=== PATIENT | male | born 1965 | race Hispanic/Latino ===

== ENCOUNTER 2018-07-11 19:33 | Emergency (ER) | payer OTHER ==
[2018-07-11] MEDS ORDERED: KETOROLAC 30 MG/ML INJ ONE (20:15)
[2018-07-11 20:34] LABS: Absolute Lymphocytes (CBC) 2.2 K/uL (0.7-4.9); Absolute Monocytes 1.1 K/uL (0.1-1.3); Absolute Neutrophil 7.2 K/uL (1.8-8.0); Basophils % 0.5 % (0-1.3); Eosinophils % 1.3 % (0-4.4); Hematocrit 39.4 % (39.6-49.0); Lymphocytes % 20.1 % (15.3-44.8); MCH 29.5 pg (27.0-35.0); MCV 85.2 fL (80-100); Monocytes % 10.5 % (3.3-12.3); RBC Red Blood Cell Count 4.63 M/uL (4.33-5.43)
--- NOTE | 2018-07-11 20:34 | RAD REPORT ---
EXAM DESCRIPTION: CT - Stone Protocol - 07/11/2018 8:23 pm CLINICAL HISTORY: Abdominal pain, flank pain, history kidney stones COMPARISON: July 2016 TECHNIQUE: Axial 5 mm thick images were obtained without oral or IV contrast. The [id number] span s the entirety of the system including uppermost abdomen and lung bases. All CT scans are performed using dose optimization technique as appropriate and may include automated exposure control or mA/KV adjustment according to patient size. FINDINGS: Mild left-sided hydronephrosis is present secondary to a 5-6 mm mid left ureter calculus. Patient has bilateral nonobstructing 2 millimeter calculi. Left renal parenchymal edema and perinephr ic stranding are present. Distal to the stone the ureter is decompressed. No suspicious renal masses. Isodense masses and pyelonephritis are not excluded on a stone protocol CT scan. Contracted urinary bladder shows no suspicious finding. Prostate gland and seminal vesicles are normal range. Imaged portions of the liver, spleen and pancreas show no suspicious findings on non-contrast imaging . No gallbladder or biliary tree abnormality identified. No significant adrenal finding. No suspicious bowel findings. No mass or bulky lymphadenopathy. Bilateral fat filled inguinal hernias are present an a very small u mbilical hernia is present. No free air, free fluid or pneumatosis. No other area of inflammatory str anding. Disc and bony degenerative changes are present. 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 IMPRESSION: Mild left-sided hydronephrosis secondary to a 5-6 mm obstructing calculus mid left urete r. Bilateral nonobstructing caliceal calculi. Isodense masses and pyelonephritis are not excluded on stone protocol technique. On a KUB projection the obstructing stone is at the level of the L5-S1 disc space.
[2018-07-11 20:45] LABS: Potassium 4.1 mmol/L (3.5-5.1)
[2018-07-11 20:49] LABS: Urine Blood 2+ (NEG); Urine Glucose NEGATIVE (NEG); Urine Protein TRACE (NEG); Urine Specific Gravity 1.025 (1.005-1.030)
--- NOTE | 2018-07-11 21:08 | ER ---
Nurse's Notes [facility] Name: Romulo Major Age: 52 yrs Sex: Male : 1965 Arrival Date: 07/11/2018 Time: 19:34 Bed 18 Private MD: Wilfredo Florez Diagnosis: Hydronephrosis with renal and ureteral calculous obstruction Presentation: 07/11 19:38 Presenting complaint: Patient states: 2 days left flank pain. pt with hx kidney stones. ak1 Transition of care: patient was not received from another setting of care. Onset of symptoms is unknown. Risk Assessment: Do you want to hurt yourself or someone else? Patient reports no desire to harm self or others. Initial Sepsis Screen: Does the patient meet any 2 criteria? No. Patient's initial sepsis screen is negative. Does the patient have a suspected source of infection? No. Patient's initial sepsis screen is negative. Care prior to arrival: None. 19:38 Method Of Arrival: Ambulatory ak1 19:38 Acuity: LOCO 3 ak1 Triage Assessment: 19:40 General: Appears uncomfortable, Behavior is calm, cooperative. ak1 Historical: - Allergies: 19:40 PENICILLINS; ak1 - Home Meds: 19:40 Bystolic oral oral [Active]; ak1 - PMHx: 19:40 Hyperlipidemia; Hypertension; ak1 - PSHx: 19:40 Lithotripsy; ak1 - Immunization history:: Adult Immunizations up to date. - Social history:: Smoking status: Patient/guardian denies using tobacco. - Ebola Screening: : No symptoms or risks identified at this time. Screenin:51 Abuse screen: Denies threats or abuse. Nutritional screening: No deficits noted. ea Tuberculosis screening: No symptoms or risk factors identified. Fall Risk None identified. Assessment: 19:45 General: Appears uncomfortable, Behavior is calm, cooperative, appropriate for age. ea Pain: Complains of pain in left flank pain Pain radiates to anterior aspect of left lateral abdomen and posterior aspect of left lateral abdomen Pain currently is 6 out of 10 on a pain scale. Quality of pain is described as throbbing. Neuro: Level of Consciousness is awake, alert, obeys commands, Oriented to person, place, time, situation. Cardiovascular: Heart tones S1 S2 present Patient's skin is warm and dry. Cardiovascular: Denies chest pain. Respiratory: Airway is patent Respiratory effort is even, unlabored, Respiratory pattern is regular, symmetrical, Breath sounds are clear bilaterally. GI: Abdomen is non-distended, Bowel sounds present X 4 quads. Abd is soft X 4 quads Abd is non tender X 4 quads. : No signs and/or symptoms were reported regarding the genitourinary system. EENT: No signs and/or symptoms were reported regarding the EENT system. Derm: Skin is pink, warm \T\ dry. Musculoskeletal: Circulation, motion, and sensation intact. 21:40 Reassessment: Patient and/or family updated on plan of care and expected duration. Pain ea level reassessed. Patient is alert, oriented x 3, equal unlabored respirations, skin warm/dry/pink. Patient states feeling better. Patient states symptoms have improved. 21:59 Reassessment: Patient and/or family updated on plan of care and expected duration. Pain ea level reassessed. Patient is alert, oriented x 3, equal unlabored respirations, skin warm/dry/pink. Discharge instructions given to patient, verbalized the understanding of instruction. Vital Signs: 19:40 BP 150 / 92; Pulse 69; Resp 18; Temp 99.3(O); Pulse Ox 97% on R/A; Weight 107.5 kg (R); ak1 Height 5 ft. 9 in. (175.26 cm) (R); Pain 6/10; 20:53 BP 153 / 84; Pulse 60; Resp 16; Pulse Ox 97% on R/A; mt 21:58 BP 137 / 70; Pulse 62; Resp 18; Temp 98.7; Pulse Ox 98% on R/A; Pain 0/10; ea 19:40 Body Mass Index 35.00 (107.50 kg, 175.26 cm) ak1 ED Course: 19:34 Patient arrived in ED. ds1 19:34 Wilfredo Florez MD is Private Physician. ds1 19:39 Triage completed. ak1 19:40 Arm band placed on Patient placed in an exam room, Patient notified of wait time. ak1 19:41 Dee Dee Desai, JAX is Primary Nurse. ea 19:42 Akshat Cruz MD is Attending Physician. gs 19:51 Patient has correct armband on for positive identification. Bed in low position. Call ea light in reach. Side rails up X2. 20:16 Inserted saline lock: 20 gauge in right antecubital area, using aseptic technique. ea Blood collected. 20:23 CT Stone Protocol In Process Unspecified. EDMD 21:07 Frank Dee MD is Referral Physician. gs 21:59 No provider procedures requiring assistance completed. IV discontinued, intact, ea bleeding controlled, No redness/swelling at site. Pressure dressing applied. Administered Medications: 20:39 Drug: TORadol 15 mg Route: IVP; Site: left antecubital; ea 21:40 Follow up: Response: No adverse reaction; Pain is decreased ea 21:27 Drug: NS 0.9% 1000 ml Route: IV; Rate: 1 bolus; Site: right antecubital; ea 22:00 Follow up: Response: No adverse reaction; IV Status: Completed infusion ea Outcome: : Discharge ordered by . gs 21:59 Discharge instructions given to patient, Instructed on discharge instructions, follow ea up and referral plans. medication usage, Demonstrated understanding of instructions, follow-up care, medications, Prescriptions given X 1. 22:00 Discharged to home ambulatory, with significant other. ea 22:00 Condition: improved 22:01 Patient left the ED. ea Signatures: Dispatcher [employer] [facility] Macie Metcalf ds1 Amparo La RN RN Ankita Huynh mt, Elena, RN RN ea Starr, Gregory, MD MD gs
--- NOTE | 2018-07-11 21:08 | EDPHYS ---
Physician Documentation [facility] Name: Romulo Major Age: 52 yrs Sex: Male : 1965 Arrival Date: 07/11/2018 Time: 19:34 Bed 18 Private MD: Wilfredo Florez ED Physician Akshat Cruz HPI: 07/11 20:54 This 52 yrs old Male presents to ER via Ambulatory with complaints of Flank gs Pain. 20:54 The patient complains of pain in the left low back and left mid back. The pain radiates gs to the left lower quadrant. Onset: The symptoms/episode began/occurred today. Modifying factors: The symptoms are alleviated by nothing. the symptoms are aggravated by nothing. Associated signs and symptoms: Pertinent positives: nausea. Severity of pain: At its worst the pain was moderate in the emergency department the pain is unchanged. The patient has experienced a previous episode. The patient has not recently seen a physician. Historical: - Allergies: 19:40 PENICILLINS; ak1 - Home Meds: 19:40 Bystolic oral oral [Active]; ak1 - PMHx: 19:40 Hyperlipidemia; Hypertension; ak1 - PSHx: 19:40 Lithotripsy; ak1 - Immunization history:: Adult Immunizations up to date. - Social history:: Smoking status: Patient/guardian denies using tobacco. - Ebola Screening: : No symptoms or risks identified at this time. ROS: 20:54 All other systems are negative. gs Exam: 20:54 Head/Face: Normocephalic, atraumatic. Eyes: Pupils equal round and reactive to light, gs extra-ocular motions intact. Lids and lashes normal. Conjunctiva and sclera are non-icteric and not injected. Cornea within normal limits. Periorbital areas with no swelling, redness, or edema. ENT: Nares patent. No nasal discharge, no septal abnormalities noted. Tympanic membranes are normal and external auditory canals are clear. Oropharynx with no redness, swelling, or masses, exudates, or evidence of obstruction, uvula midline. Mucous membranes moist. Neck: Trachea midline, no thyromegaly or masses palpated, and no cervical lymphadenopathy. Supple, full range of motion without nuchal rigidity, or vertebral point tenderness. No Meningismus. Chest/axilla: Normal chest wall appearance and motion. Nontender with no deformity. No lesions are appreciated. Cardiovascular: Regular rate and rhythm with a normal S1 and S2. No gallops, murmurs, or rubs. Normal PMI, no JVD. No pulse deficits. Respiratory: Lungs have equal breath sounds bilaterally, clear to auscultation and percussion. No rales, rhonchi or wheezes noted. No increased work of breathing, no retractions or nasal flaring. Abdomen/GI: Soft, non-tender, with normal bowel sounds. No distension or tympany. No guarding or rebound. No evidence of tenderness throughout. Back: No spinal tenderness. No costovertebral tenderness. Full range of motion. Skin: Warm, dry with normal turgor. Normal color with no rashes, no lesions, and no evidence of cellulitis. MS/ Extremity: Pulses equal, no cyanosis. Neurovascular intact. Full, normal range of motion. Neuro: Awake and alert, GCS 15, oriented to person, place, time, and situation. Cranial nerves II-XII grossly intact. Motor strength 5/5 in all extremities. Sensory grossly intact. Cerebellar exam normal. Normal gait. 20:54 Constitutional: The patient appears alert, awake. Vital Signs: 19:40 BP 150 / 92; Pulse 69; Resp 18; Temp 99.3(O); Pulse Ox 97% on R/A; Weight 107.5 kg (R); ak1 Height 5 ft. 9 in. (175.26 cm) (R); Pain 6/10; 20:53 BP 153 / 84; Pulse 60; Resp 16; Pulse Ox 97% on R/A; mt 21:58 BP 137 / 70; Pulse 62; Resp 18; Temp 98.7; Pulse Ox 98% on R/A; Pain 0/10; ea 19:40 Body Mass Index 35.00 (107.50 kg, 175.26 cm) ak1 MDM: 19:47 Patient medically screened. gs 20:54 Differential diagnosis: nephrolithiasis, pyelonephritis, UTI. Data reviewed: vital gs signs, nurses notes. Response to treatment: the patient's symptoms have markedly improved after treatment, and as a result, I will discharge patient. 07/11 20:07 Order name: Basic Metabolic Panel 07/11 20:07 Order name: CBC with Diff; Complete Time: 20:45 07/11 20:07 Order name: CT Stone Protocol; Complete Time: 20:45 07/11 20:24 Order name: Urine Dipstick--Ancillary (enter results) ms 07/11 20:07 Order name: IV Saline Lock; Complete Time: 20:39 07/11 20:07 Order name: Labs collected and sent; Complete Time: 20:39 07/11 20:07 Order name: Urine Dipstick-Ancillary (obtain specimen); Complete Time: 20:39 Administered Medications: 20:39 Drug: TORadol 15 mg Route: IVP; Site: left antecubital; ea 21:40 Follow up: Response: No adverse reaction; Pain is decreased ea 21:27 Drug: NS 0.9% 1000 ml Route: IV; Rate: 1 bolus; Site: right antecubital; ea 22:00 Follow up: Response: No adverse reaction; IV Status: Completed infusion ea Disposition: 07/11/18 21:07 Discharged to Home. Impression: Hydronephrosis with renal and ureteral calculous obstruction. - Condition is Stable. - Discharge Instructions: Kidney Stones, Hydronephrosis. - Prescriptions for Tylenol- Codeine #4 300-60 mg Oral Tablet - take 1 tablet by ORAL route every 6 hours As needed; 12 tablet. - Medication Reconciliation Form, Thank You Letter, Antibiotic Education, Prescription Opioid Use form. - Follow up: Frank Dee MD; When: 2 - 3 days; Reason: Re-evaluation by your physician. Signatures: Dispatcher [employer] EDMS Amparo La RN RN ak1 Dee Dee Desai RN RN ea Starr, Gregory, MD MD Corrections: (The following items were deleted from the chart) 22:01 21:07 07/11/2018 21:07 Discharged to Home. Impression: Hydronephrosis with renal and ea ureteral calculous obstruction. Condition is Stable. Forms are Medication Reconciliation Form, Thank You Letter, Antibiotic Education, Prescription Opioid Use. Follow up: Frank Dee; When: 2 - 3 days; Reason: Re-evaluation by your physician.
[2018-07-11] MEDS ORDERED: NA CHLORIDE 0.9% 1,000 ML ONE (21:28)
== END 2018-07-11 22:01 | disposition home or self-care (01) ==
LOC: ER 19:33
DX: N13.2 Hydronephrosis with renal and ureteral calculous obstruction (principal); I10 Essential (primary) hypertension; E78.5 Hyperlipidemia, unspecified; Z88.0 Allergy status to penicillin
CPT/HCPCS: 36415; 74176; 76377; 80048; 81003; 85025; 96361; 96374; 99284; J7030